=== PATIENT | male | born 1980 | race Caucasian/White ===

== ENCOUNTER 2017-07-14 08:55 | Emergency (ER) | payer MEDICAID ==
--- NOTE | 2017-07-14 09:18 | EDPHY ---
H & P Time Seen by Provider: 07/14/17 09:18 HPI/ROS: CHIEF COMPLAINT: Abdominal pain and vomiting HISTORY OF PRESENT ILLNESS: This 36-year-old man started feeling sick over the weekend with some abdominal cramping. That went away and on Tuesday and Tuesday he had nausea but otherwise felt well. Yesterday he had vomiting and some left- sided abdominal pain which is worse today. Today he tried to drink some grape juice and had multiple episodes of severe vomiting. He has had darker stools for the past 2 days. Abdominal pain is left-sided and does not radiate. It is worse with trying to eat or drink anything. Does not have associated diarrhea or fever or recent abdominal trauma. REVIEW OF SYSTEMS: Eye: no change in vision ENT: no sore throat Cardiac: no chest pain or syncope Pulmonary: no cough or SOB Abdomen: HPI Musculoskeletal: Chronic back pain unchanged from usual Skin: no rash Neuro: no headache Constitutional: no fever : no urinary symptoms A comprehensive 10 point review of systems is otherwise negative aside from elements mentioned in the history of present illness. PAST MEDICAL HISTORY: Degenerative disc disease with chronic back pain, asthma , GERD Social history: Occasional alcohol, THC smoker General Appearance: Alert and conversant, cooperative. Eyes: No scleral icterus. ENT, Mouth: Dry mucous membranes Respiratory: Normal respiratory effort, breath sounds equal, lungs are clear to auscultation. Cardiovascular: Regular rate and rhythm. Gastrointestinal: Left-sided abdominal tenderness lateral to the umbilicus but no rebound or guarding. Bowel sounds present. Rectal exam shows brownish stool sent for Hemoccult, no perirectal swelling or induration. Some left- sided excoriation on his buttock near the anus. Neurological: Alert and oriented x3. Normally conversant. Face symmetric, normal movement and sensation in all extremities. Skin: Warm and dry, no rashes. Musculoskeletal: No peripheral edema and no joint swelling. Psychiatric: Not agitated. Emergency Department course/MDM: Zofran 4 mg IV and normal saline 1 L for hydration due to vomiting and clinical dehydration with dry mucous membranes. Labs to include CBC chemistries. 1021: Feels better but now has some left-sided tenderness which is pretty severe. CT scanning discussed and consented. 1145: CT per Isuani hiatal hernia but no other intra-abdominal pathology. No reason for left-sided abdominal tenderness. 1210: Results discussed, abdomen soft nontender at this time. Smoking Status: Never smoked Constitutional: Initial Vital Signs Temperature (C) 36.5 C 07/14/17 09:00 Heart Rate 75 07/14/17 09:00 Respiratory Rate 16 07/14/17 09:00 Blood Pressure 145/95 H 07/14/17 09:00 O2 Sat (%) 94 07/14/17 09:00 O2 Delivery Mode Room Air Allergies/Adverse Reactions: guaifenesin [From Mucinex] Allergy (Verified 07/14/17 08:59) levofloxacin [From Levaquin] Allergy (Verified 07/14/17 08:59) Home Medications: Medication Instructions Recorded Albuterol 08/26/14 Baclofen 08/26/14 oxyCODONE/APAP 5/325 [Percocet 1 - 2 tab PO Q4H PRN #20 tab 08/26/14 5/325 (RX)] Citalopram 07/14/17 Ondansetron Odt [Zofran Odt] 4 mg PO Q4PRN #6 tab 07/14/17 Medical Decision Making - Diagnostics Imaging Results: Imaging Impressions Abdomen CT 07/14/17 10:24 Impression: 1. Diverticulosis without diverticulitis or bowel obstruction. 2. No CT evidence of appendicitis, abscess or bowel obstruction. 3. Small hiatal hernia. 4. Chronically elevated right hemidiaphragm. Findings and recommendations discussed with Emergency Department physician, Dr. Aime Molina at 1216 hours on July 14, 2017. Final report concurs with initial preliminary interpretation. Differential Diagnosis: Differential considered including but not limited to diverticulitis, gastroenteritis, splenic, mesenteric adenitis, appendicitis, GI bleed. - Data Points Laboratory Results: Laboratory Results 07/14/17 09:17 07/14/17 09:17 07/14/17 07/14/17 07/14/17 09: 09: 09:17 WBC 7.96 10^3/uL 10^3/uL (3.80-9.50) RBC 5.31 10^6/uL 10^6/uL (4.40-6.38) Hgb 16.0 g/dL g/dL (13.7-17.5) Hct 47.5 % % (40.0-51.0) MCV 89.5 fL fL (81.5-99.8) MCH 30.1 pg pg (27.9-34.1) MCHC 33.7 g/dL g/dL (32.4-36.7) RDW 12.7 % % (11.5-15.2) Plt Count 216 10^3/uL 10^3/uL (150-400) MPV 11.4 fL fL (8.7-11.7) Neut % (Auto) 69.8 % % (39.3-74.2) Lymph % (Auto) 14.4 % L % (15.0-45.0) Tw[place]gs % (Auto) 8.9 % % (4.5-13.0) Eos % (Auto) 5.8 % % (0.6-7.6) Baso % (Auto) 0.6 % % (0.3-1.7) Nucleat RBC Rel Count 0.0 % % (0.0-0.2) Absolute Neuts (auto) 5.55 10^3/uL 10^3/uL (1.70-6.50) Absolute Lymphs (auto) 1.15 10^3/uL 10^3/uL (1.00-3.00) Absolute Monos (auto) 0.71 10^3/uL 10^3/uL (0.30-0.80) Absolute Eos (auto) 0.46 10^3/uL H 10^3/uL (0.03-0.40) Absolute Basos (auto) 0.05 10^3/uL 10^3/uL (0.02-0.10) Absolute Nucleated RBC 0.00 10^3/uL 10^3/uL (0-0.01) Immature Gran % 0.5 % % (0.0-1.1) Immature Gran # 0.04 10^3/uL 10^3/uL (0.00-0.10) Sodium 138 mEq/L mEq/L (134-144) Potassium 4.5 mEq/L mEq/L (3.5-5.2) Chloride 100 mEq/L mEq/L (97-110) Carbon Dioxide 25 mEq/l mEq/l (22-31) Anion Gap 13 mEq/L mEq/L (8-16) BUN 14 mg/dL mg/dL (7-23) Creatinine 1.0 mg/dL mg/dL (0.7-1.3) Estimated GFR > 60 Glucose 87 mg/dL mg/dL (70-100) Calcium 10.2 mg/dL mg/dL (8.5-10.4) Total Bilirubin 0.7 mg/dL mg/dL (0.1-1.4) Conjugated Bilirubin 0.2 mg/dL mg/dL (0.0-0.5) Unconjugated Bilirubin 0.5 mg/dL mg/dL (0.0-1.1) AST 37 IU/L IU/L (17-59) ALT 70 IU/L IU/L (21-72) Alkaline Phosphatase 50 IU/L IU/L (38-126) Total Protein 8.1 g/dL g/dL (6.3-8.2) Albumin 4.6 g/dL g/dL (3.5-5.0) Lipase 84 IU/L IU/L (23-300) Stool Occult Bld Scrn NEGATIVE (NEGATIVE) Medications Given: Discontinued Medications Sodium Chloride (Ns) 1,000 mls @ 0 mls/hr IV ONCE ONE PRN Reason: Wide Open Stop: 07/14/17 09:23 Last Admin: 07/14/17 09:27 Dose: 1,000 mls Sodium Chloride (Ns) 1,000 mls @ 0 mls/hr IV EDNOW ONE; Wide Open PRN Reason: Protocol Stop: 07/14/17 09:32 Last Admin: 07/14/17 09:56 Dose: 1,000 mls Ondansetron HCl (Zofran) 4 mg IVP EDNOW ONE Stop: 07/14/17 09:23 Last Admin: 07/14/17 09:27 Dose: 4 mg Departure - Departure Disposition: Home, Routine, Self-Care Clinical Impression: Abdominal pain Qualifiers: Abdominal location: left upper quadrant Qualified Code(s): R10.12 - Left upper quadrant pain Nausea & vomiting Qualifiers: Vomiting type: unspecified Vomiting Intractability: non-intractable Qualified Code(s): R11.2 - Nausea with vomiting, unspecified Condition: Good Instructions: Abdominal Pain (ED) Additional Instructions: Please let your follow-up physician know that you had a CT scan today and then need to review it to see if any of the findings need outpatient follow-up. You need to return to the emergency department immediately if you develop worsening or severe pain, fever, vomiting or you are not better in 8-12 hours. Referrals: RADHA CHASE [Other] - As per Instructions Stand Alone Forms: Work Excuse Prescriptions: Ondansetron Odt [Zofran Odt] 4 mg PO Q4PRN #6 tab
[2017-07-14] MEDS ORDERED: NS 1,000 ML IV ONE ×2 (09:22→09:31)
[2017-07-14] MEDS ORDERED: ONDANSETRON 4 MG/2 ML VIAL IVP ONE (09:22)
[2017-07-14 09:35] LABS: % IMMATURE GRANULYOCYTES 0.5 % (0.0-1.1); ABSOLUTE IMMATURE GRANULOCYTES 0.04 10^3/uL (0.00-0.10); ADD DIFF? NO; ADD MORPH? NO; ADD SCAN? NO; ATYPICAL LYMPHOCYTE FLAG 10 (0-99); FRAGMENT RBC FLAG 0 (0-99); HEMATOCRIT 47.5 % (40.0-51.0); LEFT SHIFT FLG 0 (0-99); LIPEMIA HEMOLYSIS FLAG 80 (0-99); MEAN CELL HEMOGLOBIN 30.1 pg (27.9-34.1); MEAN CELL HEMOGLOBIN CONCENTR. 33.7 g/dL (32.4-36.7); MEAN CELL VOLUME 89.5 fL (81.5-99.8); MEAN PLATELET VOLUME 11.4 fL (8.7-11.7); PLATELET CLUMPS FLAG 0 (0-99); PLATELET COUNT 216 10^3/uL (150-400); RED BLOOD CELL COUNT 5.31 10^6/uL (4.40-6.38); RED CELL DISTRIBUTION WIDTH 12.7 % (11.5-15.2)
[2017-07-14 09:49] LABS: ALANINE AMINOTRANSFERASE 70 IU/L (21-72); ALBUMIN 4.6 g/dL (3.5-5.0); ALKALINE PHOSPHATASE 50 IU/L (38-126); ANION GAP 13 mEq/L (8-16); ASPARTATE AMINOTRANSFERASE 37 IU/L (17-59); BILIRUBIN,TOTAL 0.7 mg/dL (0.1-1.4); BILIRUBIN-CONJUGATED 0.2 mg/dL (0.0-0.5); BILIRUBIN-UNCONJUGATED 0.5 mg/dL (0.0-1.1); CALCIUM 10.2 mg/dL (8.5-10.4); CARBON DIOXIDE 25 mEq/l (22-31); CHLORIDE 100 mEq/L (97-110); GLOMERULAR FILTRATION RATE > 60; GLUCOSE 87 mg/dL (70-100); POTASSIUM 4.5 mEq/L (3.5-5.2); SODIUM 138 mEq/L (134-144); TOTAL PROTEIN 8.1 g/dL (6.3-8.2)
[2017-07-14] MEDS ORDERED: IOPAMIDOL (ISOVUE-300) 100 ML BTL ONE (10:45)
[2017-07-14 12:02] VITALS: TEMP 97.5
[2017-07-14 12:58] VITALS: BP 148/80; PULSE 58; RESP 16; O2SAT 93
== END 2017-07-14 12:58 | disposition home or self-care (01) ==
DX: R10.12 Left upper quadrant pain (principal); R11.2 Nausea with vomiting, unspecified; J45.909 Unspecified asthma, uncomplicated; E86.9 Volume depletion, unspecified
CPT/HCPCS: 96374; J2405; Q9967